=== PATIENT | female | born 1945 | race Caucasian/White ===

== ENCOUNTER 2016-06-26 10:00 | Outpatient (CLI) | payer OTHER, MEDICARE ==
[~2016-06-26 10:00] MED LIST: ASPI-1063 PO; LANS30CA10 PO; METO25TA6 PO; PRAS10TA6 PO; ROPI2TAB4 PO; SIMV40TA5 PO; TEMA30CA5 PO
[2016-06-26 10:44] LABS: BASOPHILS % (AUTO) 0.4 % (0.0-2.0); EOSINOPHILS # (AUTO) 0.2 K/uL (0.0-0.4); EOSINOPHILS % (AUTO) 2.2 % (0.0-4.0); HEMOGLOBIN 12.1 g/dL (12.0-16.0); LYMPHOCYTES # (AUTO) 1.8 K/uL (1.0-5.5); LYMPHOCYTES % (AUTO) 21.7 % (20.5-51.5); MEAN CORPUSCULAR HEMOGLOBIN 29 pg (27-31); MEAN CORPUSCULAR HGB CONC 34 % (32-36); MEAN CORPUSCULAR VOLUME 87 fL (79.0-98.0); MONOCYTES # (AUTO) 0.5 K/uL (0.0-1.0); MONOCYTES % (AUTO) 5.9 % (1.7-9.3); NEUTROPHILS # (AUTO) 5.8 K/uL (1.8-7.7); NEUTROPHILS % (AUTO) 69.8 % (40.0-70.0); PLATELET COUNT (AUTO) 288 K/uL (130-430); RED BLOOD CELL COUNT(AUTO) 4.15 MIL/uL (4.2-6.2); RED CELL DISTRIBUTION WIDTH 15.3 % (9.0-15.0); WHITE BLOOD COUNT (AUTO) 8.3 K/uL (4.8-10.8)
[2016-06-26 10:54] LABS: ANION GAP -1 (5-15); CALCIUM 8.9 mg/dL (8.4-11.0); CHLORIDE 107 mmol/L (98-107); GLUCOSE 128 mg/dL (70-99); POTASSIUM 3.8 mmol/L (3.5-5.1); SODIUM SERUM 140 mmol/L (136-145); UREA NITROGEN, BLOOD 22 mg/dL (8-21)
== END 2016-06-26 20:00 | disposition home or self-care (01) ==
LOC: SLB 10:00
PROVIDERS: ATTEND Specialist
DX: Z01.818 Encounter for other preprocedural examination (principal); I83.893 Varicose veins of bilateral lower extremities with other complications
CPT/HCPCS: 36415; 80048; 85025

== ENCOUNTER 2016-08-14 10:51 | Emergency (ER) | payer OTHER, MEDICARE ==
[~2016-08-14] VITALS: Ht 149.9 cm; Wt 54.4 kg
[2016-08-14 10:51] VITALS: BP 147/80; PULSE 90; RESP 24; TEMP 97.2; O2SAT 97
--- NOTE | 2016-08-14 10:51 | NUR ---
BROUGHT IN BY [facility], PLACED IN BED #3 AND TRIAGED, REPORT GIVEN TO [place]
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
--- NOTE | 2016-08-14 11:05 | NUR ---
Dr. Terrazas at the bedside evaluating Pt. Currently awaiting new orders.
--- NOTE | 2016-08-14 11:20 | NUR ---
senior technical program manager at the bedside. Pt being transported to radiology for CT scan.
[2016-08-14 11:33] LABS: ANION GAP 7 (5-15); CALCIUM 9.2 mg/dL (8.4-11.0); CHLORIDE 106 mmol/L (98-107); CREATININE 1.13 mg/dL (0.55-1.30); GLUCOSE 103 mg/dL (70-99); POTASSIUM 4.3 mmol/L (3.5-5.1); SODIUM SERUM 138 mmol/L (136-145); UREA NITROGEN, BLOOD 21 mg/dL (8-21)
[2016-08-14 11:35] LABS: BARBITURATE, URINE NEGATIVE (NEG <=200); BENZODIAZEPINE, URINE NEGATIVE (NEG <=150); CANNABINOID, URINE NEGATIVE (NEG <=50); COCAINE, URINE NEGATIVE (NEG <=150); METHAMPHETAMINES SCREEN,URINE NEGATIVE (NEG <=500); URINE AMPHETAMINE NEGATIVE (NEG <=500); URINE METHADONE NEGATIVE (NEG <=200)
[2016-08-14 11:36] LABS: OPIATE, URINE POSITIVE (NEG <=100); PHENCYCLIDINE SCREEN,URINE NEGATIVE (NEG <=25); UR TRICYCLIC ANTIDEPRESSANTS NEGATIVE (NEG <=300); URINE OXYCODONE SCREEN NEGATIVE (NEG <=100); URINE PROPOXYPHENE SCREEN NEGATIVE (NEG <=300)
[2016-08-14 11:37] LABS: ALANINE AMINOTRANSFERASE 20 U/L (12-78); ALBUMIN 3.7 g/dL (3.4-4.8); ASPARTATE AMINOTRANSFERASE 22 U/L (10-37); BASOPHILS # (AUTO) 0.2 K/uL (0.0-0.2); BASOPHILS % (AUTO) 1.7 % (0.0-2.0); EOSINOPHILS # (AUTO) 0.3 K/uL (0.0-0.4); EOSINOPHILS % (AUTO) 2.7 % (0.0-4.0); HEMATOCRIT 37.3 % (36-48); LYMPHOCYTES # (AUTO) 1.7 K/uL (1.0-5.5); LYMPHOCYTES % (AUTO) 15.3 % (20.5-51.5); MEAN CORPUSCULAR HEMOGLOBIN 28 pg (27-31); MEAN CORPUSCULAR HGB CONC 32 % (32-36); MEAN CORPUSCULAR VOLUME 87 fL (79.0-98.0); MONOCYTES # (AUTO) 0.6 K/uL (0.0-1.0); MONOCYTES % (AUTO) 5.4 % (1.7-9.3); NEUTROPHILS # (AUTO) 8.6 K/uL (1.8-7.7); NEUTROPHILS % (AUTO) 74.9 % (40.0-70.0); PLATELET COUNT (AUTO) 228 K/uL (130-430); RED CELL DISTRIBUTION WIDTH 13.9 % (9.0-15.0); TOTAL BILIRUBIN 0.2 mg/dL (0.0-1.0); TOTAL PROTEIN, SERUM 6.9 g/dL (6.4-8.3); WHITE BLOOD COUNT (AUTO) 11.4 K/uL (4.8-10.8)
[2016-08-14 11:38] LABS: ALCOHOL, BLOOD < 3 mg/dL (<10)
[2016-08-14] MEDS ORDERED: HYDROmorphone 1 MG INJ. 1 MG/ML AMPUL IVP ONE (13:00)
[2016-08-14] MEDS ORDERED: METOCLOPRAMIDE HCL 10 MG/2 ML VIAL IVP ONE (13:00)
--- NOTE | 2016-08-14 13:00 | NUR ---
Called Pt's son and daughter. Left voice mail on Pt's son and daughter cell phone. Informed Pt that family members were notified. Will continue to monitor.
[2016-08-14] MEDS ORDERED: IOHEXOL 100 ML IV ONE (13:48)
--- NOTE | 2016-08-14 14:30 | NUR ---
Pt restings. Chest rise and fall noted. HOB elevated 45 degree angle, will continue to monitor.
[2016-08-14 15:34] VITALS: BP 124/66; PULSE 78; RESP 14; TEMP 98.6; O2SAT 99
--- NOTE | 2016-08-14 15:36 | NUR ---
Pt awake and eating lunch. Pt stated she feel better. Medication was effective. Update Pt that Pt's family is on their way to pick her up. Pt verbalized understanding.
--- NOTE | 2016-08-14 15:48 | NUR ---
Patient given written and verbal discharge instructions and verbalizes understanding. ER MD discussed with patient the results and treatment provided. Patient in stable condition. ID arm band removed. IV catheter removed intact and dressing applied, no active bleeding. Patient educated on pain management and to follow up with PMD. Pain Scale 0/10. Opportunity for questions provided and answered. Patient's daughter at the bedside to order picker/assembler patient. EMT assisted patient to private auto via wheelchair.
== END 2016-08-14 15:34 | disposition home or self-care (01) ==
LOC: SED 10:51
DX: S80.01XA Contusion of right knee, initial encounter (principal); S39.91XA Unspecified injury of abdomen, initial encounter; S29.9XXA Unspecified injury of thorax, initial encounter; V43.53XA Car driver injured in collision with pick-up truck in traffic accident, initial encounter; E78.5 Hyperlipidemia, unspecified; I10 Essential (primary) hypertension; Z90.89 Acquired absence of other organs; Z95.5 Presence of coronary angioplasty implant and graft; Z79.82 Long term (current) use of aspirin; Z79.899 Other long term (current) drug therapy; W22.11XA Striking against or struck by driver side automobile airbag, initial encounter; Y93.89 Activity, other specified; Y92.89 Other specified places as the place of occurrence of the external cause; Y99.8 Other external cause status
CPT/HCPCS: 36415; 70450; 71260; 72125; 73560; 74177; 80053; 80307; 85025; 96374; 96375; 99285; G0482; J1170; J2765; Q9967

== ENCOUNTER 2017-02-19 10:11 | Outpatient (CLI) | payer OTHER, MEDICARE ==
[2017-02-19 11:01] LABS: BASOPHILS % (AUTO) 0.3 % (0.0-2.0); EOSINOPHILS # (AUTO) 0.4 K/uL (0.0-0.4); EOSINOPHILS % (AUTO) 4.5 % (0.0-4.0); HEMATOCRIT 32.7 % (36-48); HEMOGLOBIN 10.4 g/dL (12.0-16.0); LYMPHOCYTES # (AUTO) 1.7 K/uL (1.0-5.5); LYMPHOCYTES % (AUTO) 19.6 % (20.5-51.5); MEAN CORPUSCULAR HEMOGLOBIN 26 pg (27-31); MEAN CORPUSCULAR HGB CONC 32 % (32-36); MEAN CORPUSCULAR VOLUME 81 fL (79.0-98.0); MONOCYTES # (AUTO) 0.7 K/uL (0.0-1.0); MONOCYTES % (AUTO) 7.8 % (1.7-9.3); NEUTROPHILS # (AUTO) 6.1 K/uL (1.8-7.7); NEUTROPHILS % (AUTO) 67.8 % (40.0-70.0); PLATELET COUNT (AUTO) 324 K/uL (130-430); RED BLOOD CELL COUNT(AUTO) 4.03 MIL/uL (4.2-6.2); RED CELL DISTRIBUTION WIDTH 16.4 % (9.0-15.0); WHITE BLOOD COUNT (AUTO) 8.9 K/uL (4.8-10.8)
== END 2017-02-19 18:35 | disposition home or self-care (01) ==
LOC: SLB 10:11
DX: Z01.812 Encounter for preprocedural laboratory examination (principal); M48.061 Spinal stenosis, lumbar region without neurogenic claudication; M12.88 Other specific arthropathies, not elsewhere classified, other specified site; R79.89 Other specified abnormal findings of blood chemistry
CPT/HCPCS: 36415; 85025

== ENCOUNTER 2017-06-03 13:55 | Outpatient (CLI) | payer OTHER, MEDICARE ==
[~2017-06-03 13:55] MED LIST changes: +ASCO500T20 PO; +CLOP75TA2 PO; +FERR142T6 PO; +LIP10 PO; +METO25TA3 PO; +OMEP40CA33 PO; +ONDA4TAB5 PO; +POTA8TAB4 PO; +PREG75CA PO; +ROPI4TAB3 PO; +TRAM50TA92 PO; +VITD2000 PO
== END 2017-06-03 18:47 | disposition home or self-care (01) ==
LOC: SUS 13:55
PROVIDERS: ATTEND Orthopaedic Surgery
DX: R60.0 Localized edema (principal); Z98.890 Other specified postprocedural states
CPT/HCPCS: 93970

== ENCOUNTER 2019-03-01 12:43 | Outpatient (CLI) | payer OTHER, MEDICARE ==
[~2019-03-01 12:43] MED LIST changes: -ASPI-1063 PO; +ASPI-1153 PO; +ASPI-1457 PO; -LANS30CA10 PO; +LANS30CA53 PO
== END 2019-03-01 21:15 | disposition home or self-care (01) ==
LOC: SUS 12:43
PROVIDERS: ATTEND Orthopaedic Surgery
DX: M89.8X6 Other specified disorders of bone, lower leg (principal)

== ENCOUNTER 2019-03-27 22:29 | Inpatient (IN) | payer OTHER, MEDICARE ==
[~2019-03-27] VITALS: Ht 149.9 cm; Wt 103.9 kg
[2019-03-27 23:00] VITALS: BP_SYST 151
[2019-03-27] MEDS ORDERED: NACL 0.9% 1,000 ML IV ONE (23:59)
[2019-03-28 00:13] LABS: BASOPHILS % (AUTO) 0.4 % (0.0-2.0); EOSINOPHILS # (AUTO) 0.2 K/uL (0.0-0.4); HEMATOCRIT 35.3 % (36-48); HEMOGLOBIN 11.6 g/dL (12.0-16.0); LYMPHOCYTES # (AUTO) 1.1 K/uL (1.0-5.5); LYMPHOCYTES % (AUTO) 14.6 % (20.5-51.5); MEAN CORPUSCULAR HEMOGLOBIN 27 pg (27-31); MEAN CORPUSCULAR HGB CONC 33 % (32-36); MEAN CORPUSCULAR VOLUME 83 fL (79.0-98.0); MONOCYTES # (AUTO) 0.4 K/uL (0.0-1.0); NEUTROPHILS # (AUTO) 6.1 K/uL (1.8-7.7); PLATELET COUNT (AUTO) 261 K/uL (130-430); RED BLOOD CELL COUNT(AUTO) 4.24 MIL/uL (4.2-6.2); RED CELL DISTRIBUTION WIDTH 16.3 % (9.0-15.0); WHITE BLOOD COUNT (AUTO) 7.9 K/uL (4.8-10.8)
[2019-03-28 00:15] LABS: ANION GAP 8 (5-15); CALCIUM 8.6 mg/dL (8.4-11.0); CHLORIDE 108 mmol/L (98-107); CREATININE 0.92 mg/dL (0.55-1.30); GLUCOSE 109 mg/dL (70-99); POTASSIUM 3.8 mmol/L (3.5-5.1); SODIUM SERUM 143 mmol/L (136-145); UREA NITROGEN, BLOOD 20 mg/dL (8-21)
[2019-03-28 00:20] LABS: PROTHROMBIN TIME 9.7 SECS (9.5-12.5)
[2019-03-28 00:24] LABS: ALANINE AMINOTRANSFERASE 25 U/L (12-78); ALBUMIN 3.3 g/dL (3.4-4.8); ASPARTATE AMINOTRANSFERASE 19 U/L (10-37); LIPASE 111 U/L (73-393); TOTAL BILIRUBIN 0.4 mg/dL (0.0-1.0)
[2019-03-28] MEDS ORDERED: DIPHENHYDRAMINE INJ 50 MG/ML VIAL IVP ONE (01:45)
[2019-03-28] MEDS ORDERED: ONDANSETRON HCL 4 MG/2 ML VIAL IVP ONE (02:00)
[2019-03-28 02:01] LABS: BASOPHILS # (AUTO) 0.1 K/uL (0.0-0.2); EOSINOPHILS # (AUTO) 0.2 K/uL (0.0-0.4); EOSINOPHILS % (AUTO) 2.3 % (0.0-4.0); HEMOGLOBIN 10.9 g/dL (12.0-16.0); LYMPHOCYTES # (AUTO) 1.7 K/uL (1.0-5.5); MEAN CORPUSCULAR HEMOGLOBIN 28 pg (27-31); MEAN CORPUSCULAR HGB CONC 33 % (32-36); MEAN CORPUSCULAR VOLUME 84 fL (79.0-98.0); MONOCYTES # (AUTO) 0.5 K/uL (0.0-1.0); MONOCYTES % (AUTO) 5.7 % (1.7-9.3); NEUTROPHILS # (AUTO) 6.3 K/uL (1.8-7.7); PLATELET COUNT (AUTO) 249 K/uL (130-430); RED BLOOD CELL COUNT(AUTO) 3.93 MIL/uL (4.2-6.2); RED CELL DISTRIBUTION WIDTH 16.1 % (9.0-15.0); WHITE BLOOD COUNT (AUTO) 8.8 K/uL (4.8-10.8)
[2019-03-28] MEDS ORDERED: ACETAMINOPHEN 325 MG TABLET PO PRN (02:30)
[2019-03-28] MEDS ORDERED: ONDANSETRON HCL 4 MG/2 ML VIAL IVP PRN (02:30)
[2019-03-28 03:40] VITALS: BP_SYST 114
[2019-03-28 04:01] LABS: FREE T4 (FREE THYROXINE) 0.9 ng/dl (0.8-1.5); PHOSPHORUS 2.7 mg/dL (2.7-4.5); THYROID STIMULATING HORMONE 1.64 uIu/mL (0.36-3.74)
[2019-03-28] MEDS: D5NS 1,000 ML IV SCH ×3 (04:15→23:07)
[2019-03-28] MEDS: HYDROcodone/ACETAMIN 5-325 MG TAB (NORCO/ VICODIN) PO PRN ×2 (04:33→21:19)
[2019-03-28 08:00] VITALS: BP_SYST 135
[2019-03-28] MEDS ORDERED: traMADol HCL HCL 50 MG TABLET (ULTRAM) PO PRN (09:15)
[2019-03-28] MEDS ORDERED: ONDANSETRON 4 MG ODT TAB PO PRN (09:15)
[2019-03-28] MEDS: LORazepam 2 MG/ML VIAL IVP PRN (09:27)
[2019-03-28] MEDS ORDERED: METOPROLOL SUCCINATE 25 MG TAB.SR.24H (TOPROL XL) PO ONE (09:30)
[2019-03-28] MEDS ORDERED: ASCORBIC ACID 500 MG TABLET PO ONE (09:30)
[2019-03-28] MEDS ORDERED: CHOLECALCIFEROL (VITAMIN D3) 2,000 UNIT TABLET PO ONE (09:30)
[2019-03-28] MEDS ORDERED: PANTOPRAZOLE SODIUM 40 MG TAB PO ONE (09:30)
[2019-03-28] MEDS ORDERED: PREGABALIN 75 MG CAPSULE (LYRICA) PO ONE (09:30)
[2019-03-28] MEDS ORDERED: FERROUS SULFATE 142 MG TABLET.ER PO ONE (10:30)
[2019-03-28 11:19] VITALS: BP_SYST 122
[2019-03-28] MEDS: DIPHENHYDRAMINE INJ 50 MG/ML VIAL IVP PRN (12:21)
[2019-03-28 15:40] VITALS: BP_SYST 127
[2019-03-28] MEDS ORDERED: BISACODYL 5 MG TABLET.DR (DULCOLAX) PO ONE (17:00)
[2019-03-28] MEDS ORDERED: GOLYTELY / COLYTE SOLUTION 4 LITERS PO ONE (18:00)
[2019-03-28 20:00] VITALS: BP_SYST 136
[2019-03-28] MEDS: FERROUS SULFATE 142 MG TABLET.ER PO SCH (21:20)
[2019-03-28] MEDS ORDERED: GOLYTELY / COLYTE SOLUTION 4 LITERS ONE (21:30)
[2019-03-29 00:42] VITALS: BP_SYST 136
[2019-03-29 01:10] VITALS: BP_SYST 130
[2019-03-29] MEDS: DIPHENHYDRAMINE INJ 50 MG/ML VIAL IVP PRN (01:10)
[2019-03-29] MEDS: D5NS 1,000 ML IV SCH (01:14)
[2019-03-29] MEDS: LORazepam 2 MG/ML VIAL IVP PRN (02:49)
[2019-03-29] MEDS ORDERED: SIMETHICONE 40 MG/0.6 ML ML ONE (07:17)
[2019-03-29 07:32] LABS: BASOPHILS % (AUTO) 0.4 % (0.0-2.0); EOSINOPHILS # (AUTO) 0.3 K/uL (0.0-0.4); EOSINOPHILS % (AUTO) 5.1 % (0.0-4.0); HEMATOCRIT 28.9 % (36-48); HEMOGLOBIN 9.4 g/dL (12.0-16.0); LYMPHOCYTES # (AUTO) 1.6 K/uL (1.0-5.5); MEAN CORPUSCULAR HEMOGLOBIN 27 pg (27-31); MEAN CORPUSCULAR HGB CONC 32 % (32-36); MEAN CORPUSCULAR VOLUME 85 fL (79.0-98.0); MONOCYTES # (AUTO) 0.4 K/uL (0.0-1.0); MONOCYTES % (AUTO) 6.5 % (1.7-9.3); NEUTROPHILS # (AUTO) 4.3 K/uL (1.8-7.7); PLATELET COUNT (AUTO) 222 K/uL (130-430); RED BLOOD CELL COUNT(AUTO) 3.42 MIL/uL (4.2-6.2); RED CELL DISTRIBUTION WIDTH 16.6 % (9.0-15.0); WHITE BLOOD COUNT (AUTO) 6.7 K/uL (4.8-10.8)
[2019-03-29 07:42] LABS: PROTHROMBIN TIME 10.1 SECS (9.5-12.5)
[2019-03-29] MEDS: fentaNYL CITRATE/PF 100 MCG/2 ML AMP ONE ×4 (08:04→08:26)
[2019-03-29] MEDS: MIDAZOLAM HCL 5 MG/5 ML VIAL ONE ×4 (08:04→08:34)
[2019-03-29 08:14] LABS: ALANINE AMINOTRANSFERASE 25 U/L (12-78); ALBUMIN 3.1 g/dL (3.4-4.8); ANION GAP 6 (5-15); ASPARTATE AMINOTRANSFERASE 20 U/L (10-37); CALCIUM 8.2 mg/dL (8.4-11.0); CHLORIDE 108 mmol/L (98-107); CHOLESTEROL 118 mg/dL (<200); CREATININE 0.81 mg/dL (0.55-1.30); GLUCOSE 89 mg/dL (70-99); HDL CHOLESTEROL 45 mg/dL (>55); LDL CHOLESTEROL 66 mg/dL (<100); SODIUM SERUM 139 mmol/L (136-145); TOTAL BILIRUBIN 0.4 mg/dL (0.0-1.0); TRIGLYCERIDES 77 mg/dL (30-150); UREA NITROGEN, BLOOD 12 mg/dL (8-21)
[2019-03-29 08:50] LABS: THYROID STIMULATING HORMONE 1.21 uIu/mL (0.36-3.74)
[2019-03-29] MEDS ORDERED: CHOLECALCIFEROL (VITAMIN D3) 2,000 UNIT TABLET PO SCH (09:00)
[2019-03-29] MEDS ORDERED: ASCORBIC ACID 500 MG TABLET PO SCH (09:00)
[2019-03-29] MEDS ORDERED: PANTOPRAZOLE SODIUM 40 MG TAB PO SCH (09:00)
[2019-03-29] MEDS ORDERED: METOPROLOL SUCCINATE 25 MG TAB.SR.24H (TOPROL XL) PO SCH (09:00)
[2019-03-29] MEDS ORDERED: PREGABALIN 75 MG CAPSULE (LYRICA) PO SCH (09:00)
[2019-03-29] MEDS: FERROUS SULFATE 142 MG TABLET.ER PO SCH (10:08)
[2019-03-29] MEDS: HYDROcodone/ACETAMIN 5-325 MG TAB (NORCO/ VICODIN) PO PRN (10:08)
[2019-03-29 11:20] VITALS: BP_SYST 128
[2019-03-29 14:19] VITALS: BP_SYST 130
[2019-03-29 15:38] VITALS: BP_SYST 130
== END 2019-03-29 20:15 | disposition home health service (06) | DRG 391 ==
LOC: SED 22:29 → STU 03-28 02:23
PROVIDERS: ADMIT Family Medicine; ATTEND Family Medicine
PROC: 0DB68ZX Excision of Stomach, Via Natural or Artificial Opening Endoscopic, Diagnostic (ICD-10-PCS; principal; 2019-03-29 08:00)
PROC: 0DJD8ZZ Inspection of Lower Intestinal Tract, Via Natural or Artificial Opening Endoscopic (ICD-10-PCS; 2019-03-29 08:00)
DX: K44.9 Diaphragmatic hernia without obstruction or gangrene (principal); K29.71 Gastritis, unspecified, with bleeding; K57.31 Diverticulosis of large intestine without perforation or abscess with bleeding; Z68.42 Body mass index [BMI] 45.0-49.9, adult; R65.10 Systemic inflammatory response syndrome (SIRS) of non-infectious origin without acute organ dysfunction; D64.9 Anemia, unspecified; E66.01 Morbid (severe) obesity due to excess calories; E78.5 Hyperlipidemia, unspecified; F19.10 Other psychoactive substance abuse, uncomplicated; F41.9 Anxiety disorder, unspecified; G25.81 Restless legs syndrome; G47.33 Obstructive sleep apnea (adult) (pediatric); I10 Essential (primary) hypertension; I25.10 Atherosclerotic heart disease of native coronary artery without angina pectoris; I25.2 Old myocardial infarction; K22.2 Esophageal obstruction; Z96.649 Presence of unspecified artificial hip joint; K64.4 Residual hemorrhoidal skin tags; Z96.653 Presence of artificial knee joint, bilateral; M19.90 Unspecified osteoarthritis, unspecified site; M79.7 Fibromyalgia; Z79.02 Long term (current) use of antithrombotics/antiplatelets; Z79.82 Long term (current) use of aspirin; Z80.0 Family history of malignant neoplasm of digestive organs; Z85.850 Personal history of malignant neoplasm of thyroid; Z87.891 Personal history of nicotine dependence; Z90.710 Acquired absence of both cervix and uterus; Z95.5 Presence of coronary angioplasty implant and graft; Z79.899 Other long term (current) drug therapy; Z90.49 Acquired absence of other specified parts of digestive tract
CPT/HCPCS: 36415; 43239; 45378; 71045; 80053; 80061; 83036; 83690-TC; 83735-TC; 84100-TC; 84439; 84443-TC; 84484; 85025; 85610-TC; 85730-TC; 86886; 86900; 86901; 87081; 93005; 93306; 94660; 94760; 96361; 96374; 96375; 97116-GP; 99285; G0378; J1200; J2060; J2250; J2405; J3010; J7030; J7042

== ENCOUNTER 2020-01-03 12:42 | Emergency (ER) | payer OTHER, MEDICARE ==
[~2020-01-03] VITALS: Ht 149.9 cm; Wt 90.7 kg
[~2020-01-03 12:42] MED LIST changes: -ASPI-1153 PO; +ASPI-1393 PO; -ASPI-1457 PO; -CLOP75TA2 PO; -LANS30CA53 PO; -LIP10 PO; -METO25TA6 PO; +OMEP40CA13 PO; -OMEP40CA33 PO; -POTA8TAB4 PO; -PRAS10TA6 PO; -ROPI2TAB4 PO; -SIMV40TA5 PO; -TEMA30CA5 PO
[2020-01-03 12:50] VITALS: BP_SYST 111
[2020-01-03] MEDS ORDERED: KETOROLAC TROMETHAMINE 60 MG/2 ML VIAL IM ONE (14:30)
[2020-01-03] MEDS ORDERED: DIPHENOXYLATE HCL/ATROP SULF 2.5 MG TAB PO ONE (14:30)
[2020-01-03 14:37] LABS: BASOPHILS % (AUTO) 0.3 % (0.0-2.0); EOSINOPHILS # (AUTO) 0.1 K/uL (0.0-0.4); EOSINOPHILS % (AUTO) 0.9 % (0.0-4.0); HEMOGLOBIN 13.1 g/dL (12.0-16.0); LYMPHOCYTES # (AUTO) 1.4 K/uL (1.0-5.5); LYMPHOCYTES % (AUTO) 15.3 % (20.5-51.5); MEAN CORPUSCULAR HEMOGLOBIN 27 pg (27-31); MEAN CORPUSCULAR HGB CONC 33 % (32-36); MEAN CORPUSCULAR VOLUME 83 fL (79.0-98.0); MONOCYTES # (AUTO) 0.6 K/uL (0.0-1.0); MONOCYTES % (AUTO) 6.4 % (1.7-9.3); NEUTROPHILS # (AUTO) 6.9 K/uL (1.8-7.7); NEUTROPHILS % (AUTO) 77.1 % (40.0-70.0); PLATELET COUNT (AUTO) 280 K/uL (130-430); RED BLOOD CELL COUNT(AUTO) 4.83 MIL/uL (4.2-6.2); RED CELL DISTRIBUTION WIDTH 16.5 % (9.0-15.0)
[2020-01-03 15:03] LABS: ANION GAP 7 (5-15); CALCIUM 9.1 mg/dL (8.4-11.0); CHLORIDE 107 mmol/L (98-107); CREATININE 1.29 mg/dL (0.55-1.30); GLUCOSE 101 mg/dL (70-99); POTASSIUM 4.6 mmol/L (3.5-5.1); SODIUM SERUM 143 mmol/L (136-145); UREA NITROGEN, BLOOD 25 mg/dL (8-21)
[2020-01-03 15:14] LABS: ALANINE AMINOTRANSFERASE 20 U/L (12-78); ALBUMIN 3.8 g/dL (3.4-4.8); ASPARTATE AMINOTRANSFERASE 18 U/L (10-37); LIPASE 110 U/L (73-393); TOTAL BILIRUBIN 0.7 mg/dL (0.0-1.0)
[2020-01-03 16:36] VITALS: BP_SYST 111
== END 2020-01-03 16:35 | disposition home or self-care (01) ==
LOC: SED 12:42
DX: R10.84 Generalized abdominal pain (principal); I10 Essential (primary) hypertension; N28.9 Disorder of kidney and ureter, unspecified; I25.2 Old myocardial infarction; Z79.899 Other long term (current) drug therapy; Z79.82 Long term (current) use of aspirin
CPT/HCPCS: 36415; 74176; 80053; 83690; 85025; 96372; 99284; J1885